=== PATIENT | male | born 1975 | race Caucasian/White ===

== ENCOUNTER 2017-11-03 13:47 | Emergency (ER) | payer BC ==
[~2017-11-03] VITALS: Ht 195.6 cm; Wt 158.8 kg
[~2017-11-03 13:47] MED LIST: ACETAMINOP160 MG/5 M PO; ALLOPURINOL 10100 M1 PO; ALLOPURINOL 30300 M1 PO; AUBAGIO14 MG PO; B 12 PO; BACTRIM DS TAB1 EACH PO; BETASERON0.3 MG/SY1 SC; CHLORTHALIDONE25 MG PO; CIPRO500 MG PO; COLCHICINE; COLCRYS PO; COUMADIN 4 MG TA4 M1 PO; COUMADIN 5 MG TA5 M1 PO; D3 PO; DIETHYLPROPION75 MG PO; FLOMAX0.4 MG PO; GILENYA0.5 MG PO; GLUCOPHAGE500 MG PO; HYCET 7.5 MG-3473 ML PO; HYDROCHLOROTHIA25 M2 PO; HYDROCODON-ACE1 EAC7 PO; HYDROCODONE-ACE10 ML PO; HYDROXYZINE HCL25 M1 PO; IBUPROFEN 200200 M1 PO; IBUPROFEN200 M2 PO; KEFLEX500 MG PO; LEVOTHYROXIN0.112 M1 PO; LORTAB 10 MG-3473 ML PO; METFORMIN HCL500 MG PO; MULTIVITAMINS; MULTIVITAMINS1 EAC7 PO; NEXIUM40 MG PO; NORCO 5-325 TA1 EACH PO; NORVASC5 MG PO; OXYCODONE HCL 55 MG PO; PERCOCET 5-3251 EACH PO; PHENAZOPYRIDIN200 M2 PO; PHENERGAN 25 MG25 M1 PO; PREDNISONE 10 M10 M1; PREDNISONE50 MG PO; PRILOSEC40 MG PO; PROTONIX40 MG PO; RITALIN5 MG; RIZATRIPTAN10 MG PO; ROBAXIN 750 MG750 M1 PO; SERTRALINE HCL50 MG PO; SOLU CORTE; SYNTHROID; SYNTHROID200 MCG PO; TAMSULOSIN HCL0.4 MG PO; TOPAMAX 25 MG T25 M1 PO; TRAZODONE HCL5 GM MC; VIACTIV SOFT C1 EACH PO; VITAMIN D1000 UNI1 PO; WARFARIN; WELCHOL; XARELTO15 MG PO; XARELTO20 MG PO; ZOLOFT25 MG PO; ZONEGRAN25 MG PO; ZPAK PO
[2017-11-03] MEDS ORDERED: NORCO 5-325 TA1 EACH PO (15:31)
[2017-11-03] MEDS ORDERED: FLEXERIL PO (15:31)
[2017-11-03 15:53] VITALS: BP 126/83
== END 2017-11-03 15:53 | disposition home or self-care (01) ==
LOC: M.ERS 13:47
DX: S93.401A Sprain of unspecified ligament of right ankle, initial encounter (principal); E11.9 Type 2 diabetes mellitus without complications; K85.90 Acute pancreatitis without necrosis or infection, unspecified; M54.31 Sciatica, right side; I10 Essential (primary) hypertension; E66.9 Obesity, unspecified; M10.9 Gout, unspecified; E03.9 Hypothyroidism, unspecified; F41.9 Anxiety disorder, unspecified; F32.9 Major depressive disorder, single episode, unspecified; F17.210 Nicotine dependence, cigarettes, uncomplicated; Z88.0 Allergy status to penicillin; Z88.6 Allergy status to analgesic agent; Z87.442 Personal history of urinary calculi

== ENCOUNTER 2018-05-08 14:01 | Emergency (ER) | payer OTHER ==
[~2018-05-08] VITALS: Ht 195.6 cm; Wt 176.9 kg
[~2018-05-08 14:01] MED LIST changes: +FLEXERIL PO
[2018-05-08 14:49] LABS: URINE BILIRUBIN NEGATIVE (Negative); URINE BLOOD TRACE (Negative); URINE CLARITY CLEAR; URINE COLOR YELLOW; URINE GLUCOSE-RANDOM NEGATIVE (Negative); URINE KETONES NEGATIVE (Negative); URINE LEUKOCYTES-REFLEX NEGATIVE (Negative); URINE NITRITE-REFLEX NEGATIVE (Negative); URINE PROTEIN 2+ (Negative); URINE SPECIFIC GRAVITY >= 1.030 (1.005-1.030); URINE UROBILINOGEN 0.2 E.U./dl (0.2-1.0)
[2018-05-08 14:51] LABS: ABSOLUTE BASOPHILS 0.1 thou/uL (0.0-0.2); ABSOLUTE EOSINOPHILS 0.2 thou/uL (0.0-0.7); ABSOLUTE MONOCYTES 1.4 thou/uL (0.0-1.2); ABSOLUTE NEUTROPHILS 10.7 thou/uL (1.6-8.1); BASOPHILS 0.5 %; EOSINOPHILS 1.1 %; HEMATOCRIT 49.4 % (42.0-52.0); HEMOGLOBIN 16.6 gm/dL (14.0-18.0); LYMPHOCYTES 14.2 %; MCH 27.6 pg (26.0-34.0); MCHC 33.5 g/dL (28.0-37.0); MCV 82.3 fL (80.0-100.0); MONOCYTES 9.8 %; MPV 7.6 fl. (7.2-11.1); NUCLEATED RBCS 0 /100WBC; PLATELET COUNT* 253 thou/uL (150-400); POLYS 74.4 %; RDW-CV 13.6 % (10.5-14.5); WBC 14.4 thou/uL (4.0-11.0)
[2018-05-08 15:06] LABS: BACTERIA-REFLEX None Seen /HPF (None Seen); CASTS None Seen /LPF (None Seen); CRYSTALS None Seen /LPF (None Seen); SQUAMOUS 0-3 Few /LPF (0-3); URINE RBC 0-2 Rare /HPF (0-2); URINE WBC-REFLEX 0-5 Rare /HPF (0-5)
[2018-05-08 15:14] LABS: CALCIUM 9.6 mg/dL (8.5-10.1); CREATININE 1.3 mg/dL (0.6-1.3); POTASSIUM 3.7 mmol/L (3.5-5.1)
[2018-05-08 15:19] LABS: ALBUMIN 3.4 g/dL (3.4-5.0); TOTAL BILIRUBIN 0.5 mg/dL (<0.1-1.0); TOTAL PROTEIN 7.5 g/dL (6.4-8.2)
--- NOTE | 2018-05-08 16:40 | EKG ---
[place] [address] ELECTROCARDIOGRAM REPORT Name: HOSSEIN DRISCOLL ROSALINA Room: [facility]#: [id number] Admission: 05/08/18 Attend Phys: Discharge: Date of : 71 Report #: [id number] THIS REPORT FOR: //name// [facility] ED Test Date: 2018-05-08 Test Time: 14:46:26 Pat Name: HOSSEIN DRISCOLL Department: Room: Gender: M Multimedia Developer: Keila ALEXANDER : 1975 Requested By: Raiza Montes Order Number: [id number] MD: Quan Lopez Measurements Intervals [place] Rate: 85 P: 15 KS: 202 QRS: -4 QRSD: 104 T: 19 QT: 367 QTc: 437 Interpretive Statements Sinus rhythm Borderline prolonged KS interval Left ventricular hypertrophy Baseline wander in lead(s) V1,V2,V3,V4,V5,V6 Compared to ECG 06/23/2017 11:14:55 no change Electronically Signed On 05-08-2018 16:39:44 CDT by Quan Lopez [email or web address] <ELECTRONICALLY SIGNED> By: Quan Lopez MD, [facility] 05/08/18 1639 [id number] 1446 Quan Lopez MD, [facility] /EPI
[2018-05-08 18:04] VITALS: BP 116/85
[2018-05-08] MEDS ORDERED: VENTOLIN HFA 1818 GM INH (18:05)
== END 2018-05-08 18:10 | disposition home or self-care (01) ==
LOC: M.ERS 14:01
PROVIDERS: Nurse Practitioner Family
DX: J20.9 Acute bronchitis, unspecified (principal); A08.4 Viral intestinal infection, unspecified; E11.9 Type 2 diabetes mellitus without complications; G35 Multiple sclerosis; I10 Essential (primary) hypertension; G47.33 Obstructive sleep apnea (adult) (pediatric); E66.9 Obesity, unspecified; M10.9 Gout, unspecified; E03.9 Hypothyroidism, unspecified; F32.9 Major depressive disorder, single episode, unspecified; F41.9 Anxiety disorder, unspecified; F17.210 Nicotine dependence, cigarettes, uncomplicated; Z86.718 Personal history of other venous thrombosis and embolism; Z87.442 Personal history of urinary calculi; Z90.49 Acquired absence of other specified parts of digestive tract; Z98.890 Other specified postprocedural states; Z88.5 Allergy status to narcotic agent; Z88.0 Allergy status to penicillin; Z68.42 Body mass index [BMI] 45.0-49.9, adult

== ENCOUNTER 2018-08-20 12:23 | Inpatient (IN) | payer OTHER ==
[~2018-08-20] VITALS: Ht 195.6 cm; Wt 163.3 kg
[~2018-08-20 12:23] MED LIST changes: +VENTOLIN HFA 1818 GM INH
[2018-08-20 12:29] VITALS: BP 141/97
[2018-08-20 13:00] LABS: BE 0.4 mmol/L (-2 to +3); HCO3 24.2 mmol/L (22.0-26.0); PO2 74.3 mmHg (75.0-100.0); pH 7.434 (7.340-7.450)
[2018-08-20 13:02] LABS: ABSOLUTE BASOPHILS 0.1 thou/uL (0.0-0.2); ABSOLUTE MONOCYTES 0.7 thou/uL (0.0-1.2); ABSOLUTE NEUTROPHILS 8.1 thou/uL (1.6-8.1); BASOPHILS 0.6 %; EOSINOPHILS 0.4 %; HEMATOCRIT 46.3 % (42.0-52.0); HEMOGLOBIN 15.6 gm/dL (14.0-18.0); LYMPHOCYTES 10.3 %; MCH 28.6 pg (26.0-34.0); MCHC 33.7 g/dL (28.0-37.0); MCV 84.7 fL (80.0-100.0); MONOCYTES 6.7 %; MPV 8.9 fl. (7.2-11.1); NUCLEATED RBCS 0 /100WBC; PLATELET COUNT* 137 thou/uL (150-400); RBC 5.47 mil/uL (4.50-6.00); WBC 9.9 thou/uL (4.0-11.0)
[2018-08-20 13:38] LABS: ANION GAP 7 mmol/L (7-16); BUN 8 mg/dL (7-18); CALCIUM 9.1 mg/dL (8.5-10.1); CHLORIDE 91 mmol/L (98-107); CO2 28 mmol/L (21-32); CREATININE 1.3 mg/dL (0.6-1.3); POTASSIUM 3.3 mmol/L (3.5-5.1); SODIUM 126 mmol/L (136-145)
[2018-08-20 13:43] LABS: GLUCOSE 589 mg/dL (70-99)
[2018-08-20 13:45] LABS: ALBUMIN 3.5 g/dL (3.4-5.0); ALKALINE PHOSPHATASE 106 U/L (46-116); SGOT 92 U/L (15-37); SGPT 98 U/L (30-65); TOTAL BILIRUBIN 0.9 mg/dL (<0.1-1.0); TOTAL PROTEIN 7.2 g/dL (6.4-8.2)
[2018-08-20] MEDS ORDERED: WELLBUTRIN XL300 MG PO (14:07)
[2018-08-20 14:31] VITALS: BP 123/84
[2018-08-20 14:45] VITALS: BP 135/96
[2018-08-20] MEDS ORDERED: ULTRAM 50MG TAB50 MG PO (16:54)
--- NOTE | 2018-08-20 19:44 | NUR ---
PT ARRIVED TO ROOM 208 AT APPROX 1440, ADMISSION HX AND ASSESMENT DONE CHARTED. PT A/O X4, UP AD MALATHI, BLOOD SUGARS MONITORED. PT GIVEN MEDS PRE MAR, REVIEWED HOME MEDS WITH PT. PT DENIES PAIN, VSS. REPORT GIVEN TO ONCOMING RNJUN.
[2018-08-20 20:10] VITALS: BP 118/72
[2018-08-20 22:08] LABS: GLYCOHEMOGLOBIN (HGB A1C) 12.7 % (4.8-5.6)
[2018-08-21] VITALS: BP 111/68
--- NOTE | 2018-08-21 01:15 | NUR ---
ASSUMED CARE OF PT AT 1900. PT IS ALERT AND ORIENTED. VSS. PERRLA. NO COMPLAINTS OF PAIN. STEADY GAIT. BLOOD SUGAR IS 170. PT IS IN SINUS RYTHM ON THE TELEMETRY. PT IS RESTING COMFORTABLY IN BED. RESPIRATIONS ARE EVEN AND NONLABORED. WILL CONTINUE TO MONITOR PT.
[2018-08-21 02:06] LABS: HEPATITIS B SURFACE AG Negative (Negative)
[2018-08-21 04:00] VITALS: BP 116/69
[2018-08-21 04:23] LABS: HEMATOCRIT 42.1 % (42.0-52.0); HEMOGLOBIN 14.3 gm/dL (14.0-18.0); MCH 28.5 pg (26.0-34.0); MCHC 33.9 g/dL (28.0-37.0); MPV 8.6 fl. (7.2-11.1); RBC 5.01 mil/uL (4.50-6.00); RDW-CV 13.1 % (10.5-14.5); WBC 6.2 thou/uL (4.0-11.0)
[2018-08-21 04:37] LABS: ALBUMIN 2.9 g/dL (3.4-5.0); CALCIUM 8.4 mg/dL (8.5-10.1); CREATININE 1.1 mg/dL (0.6-1.3); MAGNESIUM 1.7 mg/dL (1.8-2.4); POTASSIUM 3.2 mmol/L (3.5-5.1); TOTAL BILIRUBIN 0.8 mg/dL (<0.1-1.0); TOTAL PROTEIN 5.7 g/dL (6.4-8.2)
--- NOTE | 2018-08-21 07:30 | NUR ---
ASSUMED CARE OF PT ASSESSED AND DOCUMENTED. PT IS ON CARDIAC MONITER TRACING SR HR 73. PT IS A&O WITH NO C/O PAIN. VSS WNL. PT IS AFEBRILE AND ON ROOM AIR. PT IS NPO FOR ABD ULTRA SOUND. BED IS IN LOW POSITION CALL LIGHT IS IN REACH. WM.
[2018-08-21 08:00] VITALS: BP 121/77
[2018-08-21 10:15] LABS: URINE BILIRUBIN NEGATIVE (Negative); URINE BLOOD TRACE (Negative); URINE CLARITY CLEAR; URINE COLOR YELLOW; URINE GLUCOSE-RANDOM 3+ (Negative); URINE KETONES TRACE (Negative); URINE LEUKOCYTES-REFLEX NEGATIVE (Negative); URINE NITRITE-REFLEX NEGATIVE (Negative); URINE PROTEIN TRACE (Negative); URINE SPECIFIC GRAVITY >= 1.030 (1.005-1.030); URINE UROBILINOGEN 0.2 E.U./dl (0.2-1.0)
--- NOTE | 2018-08-21 11:53 | NUR ---
Pt is A&O. Resides at home with his girlfriend. Independent and active, continues to work outside of the home. Pt wears a cpap at night, no other DME. Hx of HH, does not recall the name of the agency. No hx of skilled. Pt's goal is to return home at dc. Pt states that mentioned possible dc to home tomorrow. Following.
--- NOTE | 2018-08-21 15:47 | NUR ---
PT TRANSFERRED TO [facility]. REPORT CALLED.
--- NOTE | 2018-08-21 16:07 | NUR ---
PT TRANSFERRED TO UNIT. PT IS ALERT AND ORIENTED. PT IS ON ROOM AIR, CLEAR LUNGS. PULSES 2+ IN ALL EXTREMITIES. SKIN IS DRY AND INTACT. PT IS UP AD MALATHI AND HAS A STEADY GAIT. CALL LIGHT IN REACH. PT NOTIFIED TO CALL IF NEEDING ASSISTANCE. WILL CONTINUE TO MONITOR.
--- NOTE | 2018-08-21 17:15 | NUR ---
PT IS ALERT AND ORIENTED. PT IS UP AD MALATHI. PT HAS BEEN UP TO CHAIR FOR DINNER. PT RECEIVED INSULIN WITH BLOOD SUAGR OF 205. CALL LIGHT IN REACH. PT NOTIFIED TO CALL US IF NEEDING ASSISTANCE. WILL CONTINUE TO MONITOR. PT GIVEN DOSE OF POTASSIUM DUE TO LEVEL BEING 3.4.
--- NOTE | 2018-08-21 18:47 | NUR ---
CHARTING COMPLETED BY KATHIA Carlton RN. REVIEWED AND AGREE WITH ALL CHARTING AND ASSESSMENTS.
[2018-08-21 21:02] VITALS: BP 116/76
--- NOTE | 2018-08-22 05:00 | NUR ---
ALERT AND ORIENTED X4. RESTING QUIETLY IN BED ON HOURLY ROUNDS. NO C/O N/V OR PAIN. UP AD MALATHI WITHOUT DIFFICULTY. LAST BLOOD SUGAR AT BEDTIME 106. CALL LIGHT WITHIN REACH. PROGRESSING TOWARD DISCHARGE GOAL.
[2018-08-22 05:03] LABS: HEMATOCRIT 42.4 % (42.0-52.0); HEMOGLOBIN 14.1 gm/dL (14.0-18.0); MCH 28.4 pg (26.0-34.0); MCHC 33.3 g/dL (28.0-37.0); MCV 85.2 fL (80.0-100.0); MPV 8.9 fl. (7.2-11.1); RBC 4.98 mil/uL (4.50-6.00); RDW-CV 13.3 % (10.5-14.5); WBC 6.4 thou/uL (4.0-11.0)
[2018-08-22 05:30] LABS: ALBUMIN 2.8 g/dL (3.4-5.0); CALCIUM 8.8 mg/dL (8.5-10.1); MAGNESIUM 1.8 mg/dL (1.8-2.4); POTASSIUM 3.5 mmol/L (3.5-5.1); TOTAL BILIRUBIN 0.7 mg/dL (<0.1-1.0); TOTAL PROTEIN 5.5 g/dL (6.4-8.2)
[2018-08-22 08:23] VITALS: BP 135/79
[2018-08-22] MEDS ORDERED: JANUVIA100 MG PO (08:30)
[2018-08-22 08:54] VITALS: BP 135/79
--- NOTE | 2018-08-22 09:16 | NUR ---
PT GIVEN DISCHARGE INFORMATION AT THIS TIME. PRESCRIPTIONS GIVEN. PT DENIED ANY QUESTIONS OR CONCERNS AT THIS TIME. PT LEFT WITH GIRL FRIEND TO HOME CARE.
[2018-08-22 09:56] VITALS: BP 135/79
== END 2018-08-22 09:57 | disposition home or self-care (01) | DRG 637 ==
LOC: M.ERS 12:23 → M.2W 14:10 → M.TBA-ER 14:10 → M.2W 14:45 → M.ORTHSURG 08-21 15:41
PROVIDERS: Nurse Practitioner Family; ADMIT Internal Medicine
DX: E11.65 Type 2 diabetes mellitus with hyperglycemia (principal); E11.00 Type 2 diabetes mellitus with hyperosmolarity without nonketotic hyperglycemic-hyperosmolar coma (NKHHC); Z68.41 Body mass index [BMI] 40.0-44.9, adult; Z86.718 Personal history of other venous thrombosis and embolism; Z86.711 Personal history of pulmonary embolism; Z87.442 Personal history of urinary calculi; I10 Essential (primary) hypertension; G47.33 Obstructive sleep apnea (adult) (pediatric); E66.9 Obesity, unspecified; M10.9 Gout, unspecified; E03.9 Hypothyroidism, unspecified; F32.9 Major depressive disorder, single episode, unspecified; F41.9 Anxiety disorder, unspecified; Z90.49 Acquired absence of other specified parts of digestive tract; Z88.0 Allergy status to penicillin; G35 Multiple sclerosis; Z28.21 Immunization not carried out because of patient refusal

== ENCOUNTER → 2019-01-11 | Outpatient (CLI) | payer OTHER ==
[~2019-01-11] MED LIST changes: +JANUVIA100 MG PO; +ULTRAM 50MG TAB50 MG PO; +WELLBUTRIN XL300 MG PO
== END ==
LOC: M.ULTRA 15:00
DX: M79.89 Other specified soft tissue disorders (principal); M25.872 Other specified joint disorders, left ankle and foot

== ENCOUNTER → 2019-01-25 | Outpatient (CLI) | payer OTHER | LOC: M.MRI 13:19 | DX: S93.412A Sprain of calcaneofibular ligament of left ankle, initial encounter (principal); M25.472 Effusion, left ankle; M19.071 Primary osteoarthritis, right ankle and foot; M62.562 Muscle wasting and atrophy, not elsewhere classified, left lower leg; M89.8X7 Other specified disorders of bone, ankle and foot; M76.62 Achilles tendinitis, left leg; X58.XXXA Exposure to other specified factors, initial encounter; Y93.89 Activity, other specified; Y92.89 Other specified places as the place of occurrence of the external cause; Y99.8 Other external cause status ==

== ENCOUNTER → 2020-04-05 | Outpatient (CLI) | payer OTHER | LOC: M.ULTRA 16:43 | DX: I82.432 Acute embolism and thrombosis of left popliteal vein (principal); R22.42 Localized swelling, mass and lump, left lower limb; Z86.718 Personal history of other venous thrombosis and embolism ==

== ENCOUNTER → 2020-09-12 | Outpatient (CLI) | payer OTHER | LOC: M.CT 12:00 | PROVIDERS: ATTEND Registered Nurse Diabetes Educator | DX: S06.0X0D Concussion without loss of consciousness, subsequent encounter (principal); G43.009 Migraine without aura, not intractable, without status migrainosus; X58.XXXD Exposure to other specified factors, subsequent encounter ==

== ENCOUNTER 2021-04-05 23:02 | Emergency (ER) | payer OTHER ==
[~2021-04-05] VITALS: Ht 195.6 cm; Wt 156.5 kg
[2021-04-05] MEDS ORDERED: ELIQUIS2.5 MG PO (23:24)
[2021-04-05] MEDS ORDERED: PROZAC20 M1 PO (23:25)
[2021-04-05] MEDS ORDERED: PROPRANOLOL 8080 MG PO (23:26)
[2021-04-05] MEDS ORDERED: LIPITOR10 MG PO (23:29)
[2021-04-05] MEDS ORDERED: LISINOPRIL10 MG PO (23:29)
[2021-04-05] MEDS ORDERED: FLOMAX0.4 MG PO (23:29)
[2021-04-06] VITALS: BP 155/106
== END 2021-04-06 00:01 | disposition home or self-care (01) ==
LOC: M.ERS 23:02
DX: S61.211A Laceration without foreign body of left index finger without damage to nail, initial encounter (principal); E11.9 Type 2 diabetes mellitus without complications; I10 Essential (primary) hypertension; M10.9 Gout, unspecified; E03.9 Hypothyroidism, unspecified; F17.210 Nicotine dependence, cigarettes, uncomplicated; Z88.0 Allergy status to penicillin; Z88.1 Allergy status to other antibiotic agents; Z79.899 Other long term (current) drug therapy; Z90.49 Acquired absence of other specified parts of digestive tract; W26.0XXA Contact with knife, initial encounter; Y93.89 Activity, other specified; Y92.89 Other specified places as the place of occurrence of the external cause; Y99.9 Unspecified external cause status

== ENCOUNTER 2021-04-24 17:10 | Emergency (ER) | payer OTHER ==
[~2021-04-24] VITALS: Ht 195.6 cm; Wt 160.1 kg
[~2021-04-24 17:10] MED LIST changes: +ELIQUIS2.5 MG PO; +LIPITOR10 MG PO; +LISINOPRIL10 MG PO; +PROPRANOLOL 8080 MG PO; +PROZAC20 M1 PO
[2021-04-24] MEDS ORDERED: OMEPRAZOLE 20 M20 M1 PO (17:23)
[2021-04-24 18:09] LABS: ABSOLUTE EOSINOPHILS 0.2 thou/uL (0.0-0.7); ABSOLUTE LYMPHOCYTES 1.5 thou/uL (0.8-5.3); ABSOLUTE MONOCYTES 0.9 thou/uL (0.0-1.2); ABSOLUTE NEUTROPHILS 4.4 thou/uL (1.6-8.1); BASOPHILS 0.7 %; EOSINOPHILS 2.9 %; HEMATOCRIT 44.2 % (42.0-52.0); HEMOGLOBIN 15.3 gm/dL (14.0-18.0); LYMPHOCYTES 21.4 %; MCH 28.9 pg (26.0-34.0); MCHC 34.6 g/dL (28.0-37.0); MCV 83.6 fL (80.0-100.0); MONOCYTES 13.1 %; NUCLEATED RBCS 0 /100WBC; PLATELET COUNT* 151 thou/uL (150-400); POLYS 61.9 %; RBC 5.29 mil/uL (4.50-6.00); RDW-CV 13.1 % (10.5-14.5); WBC 7.2 thou/uL (4.0-11.0)
[2021-04-24 18:26] LABS: CALCIUM 9.1 mg/dL (8.5-10.1); CREATININE 1.2 mg/dL (0.6-1.3); POTASSIUM 3.8 mmol/L (3.5-5.1)
[2021-04-24 18:32] LABS: URINE BILIRUBIN NEGATIVE (Negative); URINE BLOOD TRACE (Negative); URINE CLARITY CLEAR; URINE COLOR YELLOW; URINE GLUCOSE-RANDOM NEGATIVE (Negative); URINE KETONES NEGATIVE (Negative); URINE LEUKOCYTES-REFLEX NEGATIVE (Negative); URINE NITRITE-REFLEX NEGATIVE (Negative); URINE PROTEIN 2+ (Negative); URINE SPECIFIC GRAVITY >= 1.030 (1.005-1.030); URINE UROBILINOGEN 0.2 E.U./dl (0.2-1.0)
[2021-04-24 18:40] LABS: BACTERIA-REFLEX None Seen /HPF (None Seen); HYALINE CASTS 0-3 Few /LPF (None Seen); MUCUS None Seen strn/LPF (None Seen); SQUAMOUS 0-3 Few /LPF (0-3); URINE RBC 0-2 Rare /HPF (0-2); URINE WBC-REFLEX 0-5 Rare /HPF (0-5)
[2021-04-24 18:41] LABS: CRYSTALS None Seen /LPF (None Seen)
[2021-04-24] MEDS ORDERED: CLEOCIN HCL300 MG PO (18:42)
[2021-04-24 18:57] VITALS: BP 172/90
== END 2021-04-24 18:57 | disposition home or self-care (01) ==
LOC: M.ERS 17:10
PROVIDERS: Nurse Practitioner Psychiatric/Mental Health
DX: I10 Essential (primary) hypertension (principal); E11.9 Type 2 diabetes mellitus without complications; E03.9 Hypothyroidism, unspecified; G47.33 Obstructive sleep apnea (adult) (pediatric); E66.9 Obesity, unspecified; F17.210 Nicotine dependence, cigarettes, uncomplicated; Z68.41 Body mass index [BMI] 40.0-44.9, adult; Z88.0 Allergy status to penicillin; Z88.8 Allergy status to other drugs, medicaments and biological substances; Z86.718 Personal history of other venous thrombosis and embolism; Z86.711 Personal history of pulmonary embolism; Z87.442 Personal history of urinary calculi; Z90.49 Acquired absence of other specified parts of digestive tract; R59.1 Generalized enlarged lymph nodes

== ENCOUNTER 2021-05-29 14:44 | Emergency (ER) | payer OTHER ==
[~2021-05-29] VITALS: Ht 195.6 cm; Wt 160.1 kg
[~2021-05-29 14:44] MED LIST changes: +CLEOCIN HCL300 MG PO; +OMEPRAZOLE 20 M20 M1 PO
[2021-05-29] MEDS ORDERED: PROMETH-CODEIN 65 ML PO (16:40)
[2021-05-29] MEDS ORDERED: DEXAMETHASONE 44 M1 PO (16:40)
[2021-05-29] MEDS ORDERED: VENTOLIN HFA 1818 GM INH (16:40)
[2021-05-29 17:22] VITALS: BP 169/120
== END 2021-05-29 17:23 | disposition home or self-care (01) ==
LOC: M.ERS 14:44
DX: J40 Bronchitis, not specified as acute or chronic (principal); E11.9 Type 2 diabetes mellitus without complications; I10 Essential (primary) hypertension; G47.33 Obstructive sleep apnea (adult) (pediatric); E03.9 Hypothyroidism, unspecified; E66.9 Obesity, unspecified; F17.210 Nicotine dependence, cigarettes, uncomplicated; Z88.0 Allergy status to penicillin; Z88.8 Allergy status to other drugs, medicaments and biological substances; Z86.718 Personal history of other venous thrombosis and embolism; Z86.711 Personal history of pulmonary embolism; Z87.442 Personal history of urinary calculi; Z68.41 Body mass index [BMI] 40.0-44.9, adult; Z90.49 Acquired absence of other specified parts of digestive tract

== ENCOUNTER 2021-07-25 10:27 | Emergency (ER) | payer OTHER ==
[~2021-07-25] VITALS: Ht 195.6 cm; Wt 160.1 kg
[~2021-07-25 10:27] MED LIST changes: +DEXAMETHASONE 44 M1 PO; +PROMETH-CODEIN 65 ML PO
[2021-07-25 11:18] LABS: ABSOLUTE BASOPHILS 0.1 thou/uL (0.0-0.2); ABSOLUTE EOSINOPHILS 0.2 thou/uL (0.0-0.7); ABSOLUTE LYMPHOCYTES 1.7 thou/uL (0.8-5.3); ABSOLUTE MONOCYTES 0.8 thou/uL (0.0-1.2); ABSOLUTE NEUTROPHILS 3.6 thou/uL (1.6-8.1); EOSINOPHILS 3.1 %; HEMATOCRIT 43.1 % (42.0-52.0); HEMOGLOBIN 14.5 gm/dL (14.0-18.0); LYMPHOCYTES 26.2 %; MCH 28.2 pg (26.0-34.0); MCHC 33.7 g/dL (28.0-37.0); MCV 83.6 fL (80.0-100.0); MONOCYTES 12.5 %; MPV 8.2 fl. (7.2-11.1); NUCLEATED RBCS 0 /100WBC; PLATELET COUNT* 134 thou/uL (150-400); POLYS 57.2 %; RBC 5.16 mil/uL (4.50-6.00); RDW-CV 14.2 % (10.5-14.5); WBC 6.4 thou/uL (4.0-11.0)
[2021-07-25 11:26] LABS: CALCIUM 8.7 mg/dL (8.5-10.1); CREATININE 1.4 mg/dL (0.6-1.3); POTASSIUM 4.9 mmol/L (3.5-5.1)
[2021-07-25 11:31] LABS: ALBUMIN 3.3 g/dL (3.4-5.0); TOTAL BILIRUBIN 0.5 mg/dL (<0.1-1.0); TOTAL PROTEIN 6.7 g/dL (6.4-8.2)
[2021-07-25 11:49] LABS: URINE BILIRUBIN NEGATIVE (Negative); URINE BLOOD NEGATIVE (Negative); URINE CLARITY CLEAR; URINE COLOR YELLOW; URINE GLUCOSE-RANDOM NEGATIVE (Negative); URINE KETONES NEGATIVE (Negative); URINE LEUKOCYTES NEGATIVE (Negative); URINE NITRITE NEGATIVE (Negative); URINE PROTEIN NEGATIVE (Negative); URINE SPECIFIC GRAVITY 1.015 (1.005-1.030); URINE UROBILINOGEN 0.2 E.U./dl (0.2-1.0)
[2021-07-25 13:46] VITALS: BP 156/108
== END 2021-07-25 13:47 | disposition home or self-care (01) ==
LOC: M.ERS 10:27
PROVIDERS: Physician Assistant
DX: N20.0 Calculus of kidney (principal); E11.9 Type 2 diabetes mellitus without complications; I10 Essential (primary) hypertension; E66.9 Obesity, unspecified; E03.9 Hypothyroidism, unspecified; F32.9 Major depressive disorder, single episode, unspecified; F41.9 Anxiety disorder, unspecified; F17.210 Nicotine dependence, cigarettes, uncomplicated; Z87.442 Personal history of urinary calculi; Z86.718 Personal history of other venous thrombosis and embolism; Z68.41 Body mass index [BMI] 40.0-44.9, adult; Z90.49 Acquired absence of other specified parts of digestive tract; Z98.890 Other specified postprocedural states; Z79.899 Other long term (current) drug therapy; Z88.8 Allergy status to other drugs, medicaments and biological substances; Z88.0 Allergy status to penicillin

== ENCOUNTER 2021-09-20 11:21 | Inpatient (IN) | payer OTHER ==
[~2021-09-20] VITALS: Ht 195.6 cm; Wt 161.0 kg
--- NOTE | ~2021-09-20 | PROC ---
[address] [address] PROCEDURE REPORT Name: HOSSEIN DRISCOLL Room: [address] IN M.R.#: [id number] Admission: 09/20/21 Attend Phys: Diya Machado MD Discharge: 09/23/21 Date of : 71 Report #: [id number] THIS REPORT FOR: cc: Bess Davidson Tammy RNP [facility],Medical Records Staff ~ For GI report, please see the Provation report in Perceptive 7 content. By: 1217Medical Records Staff DANICA /HAVEN
[~2021-09-20 11:21] MED LIST changes: -LISINOPRIL10 MG PO; +LISINOPRIL20 MG PO
[2021-09-20 11:25] VITALS: BP 170/117
[2021-09-20 11:55] LABS: ABSOLUTE BASOPHILS 0.1 thou/uL (0.0-0.2); ABSOLUTE EOSINOPHILS 0.2 thou/uL (0.0-0.7); ABSOLUTE LYMPHOCYTES 1.4 thou/uL (0.8-5.3); ABSOLUTE MONOCYTES 1.2 thou/uL (0.0-1.2); ABSOLUTE NEUTROPHILS 6.1 thou/uL (1.6-8.1); BASOPHILS 0.7 %; EOSINOPHILS 2.6 %; HEMATOCRIT 49.3 % (42.0-52.0); HEMOGLOBIN 16.6 gm/dL (14.0-18.0); LYMPHOCYTES 15.9 %; MCH 28.4 pg (26.0-34.0); MCHC 33.6 g/dL (28.0-37.0); MCV 84.4 fL (80.0-100.0); MONOCYTES 12.8 %; MPV 8.2 fl. (7.2-11.1); NUCLEATED RBCS 0 /100WBC; PLATELET COUNT* 148 thou/uL (150-400); RBC 5.84 mil/uL (4.50-6.00); RDW-CV 13.1 % (10.5-14.5)
[2021-09-20 12:12] LABS: CALCIUM 8.7 mg/dL (8.5-10.1); CREATININE 1.4 mg/dL (0.6-1.3); POTASSIUM 3.9 mmol/L (3.5-5.1)
[2021-09-20 12:16] LABS: ALBUMIN 3.2 g/dL (3.4-5.0); TOTAL BILIRUBIN 0.6 mg/dL (<0.1-1.0); TOTAL PROTEIN 6.6 g/dL (6.4-8.2)
[2021-09-20 17:23] VITALS: BP 153/102
[2021-09-20 17:29] VITALS: BP 172/104
[2021-09-20 20:00] VITALS: BP 145/79
[2021-09-21 03:17] VITALS: BP 143/95
[2021-09-21 05:07] LABS: GLYCOHEMOGLOBIN (HGB A1C) 8.7 % (4.8-5.6)
[2021-09-21 05:42] LABS: HEMATOCRIT 46.1 % (42.0-52.0); HEMOGLOBIN 15.2 gm/dL (14.0-18.0); MCH 28.4 pg (26.0-34.0); MCHC 33.1 g/dL (28.0-37.0); MCV 85.8 fL (80.0-100.0); RBC 5.37 mil/uL (4.50-6.00); RDW-CV 13.3 % (10.5-14.5); WBC 7.3 thou/uL (4.0-11.0)
[2021-09-21 05:51] LABS: ALBUMIN 2.8 g/dL (3.4-5.0); CALCIUM 8.4 mg/dL (8.5-10.1); CREATININE 1.3 mg/dL (0.6-1.3); TOTAL BILIRUBIN 0.6 mg/dL (<0.1-1.0); TOTAL PROTEIN 5.7 g/dL (6.4-8.2)
[2021-09-21 06:25] VITALS: BP 142/78
[2021-09-21 08:30] VITALS: BP 135/105
--- NOTE | 2021-09-21 10:09 | EKG ---
[place] [address] ELECTROCARDIOGRAM REPORT Name: HOSSEIN DRISCOLL Room: [place] [address] ADM IN .R.#: [id number] Admission: 09/20/21 Attend Phys: Diya Machado, Discharge: Date of : 71 Date of Service: 09/20/21 1126 Report #: [id number] THIS REPORT FOR: //name// [facility] ED Test Date: 2021-09-20 Test Time: 11:26:15 Pat Name: HOSSEIN DRISCOLL Department: Room: [facility] Gender: M Tennis Centre Manager: : 1975 Requested By: Randy Rainey Order Number: [id number] MD: Quan Lopez Measurements Intervals [place] Rate: 69 P: 12 DE: 215 QRS: -37 QRSD: 104 T: 59 QT: 383 QTc: 411 Interpretive Statements Sinus rhythm Prolonged DE interval Consider left atrial enlargement Left ventricular hypertrophy Baseline wander in lead(s) V3,V4,V5 Compared to ECG 05/08/2018 14:46:26 No significant changes Electronically Signed On 09-21-2021 10:09:40 DECONTAMINATION TECHNICIAN by Quan Lopez [email or web address] <ELECTRONICALLY SIGNED> By: Quan Lopez MD, FACC 09/21/21 1009 1126 1126 Quan Lopez MD, FACC /EPI
[2021-09-21 12:00] VITALS: BP 146/111
--- NOTE | 2021-09-21 13:01 | 2DMMODE ---
[place] [address] 2 D/M-MODE ECHOCARDIOGRAM Name: HOSSEIN DRISCOLL Room: [facility] ADM IN .Amber.#: [id number] Admission: 09/20/21 Attend Phys: Diya Machado, Discharge: Date of : 71 Date of Service: 09/21/21 1300 Report #: [id number] THIS REPORT FOR: cc: Bess Davidson Tammy RNP Blick, David R. MD [facility] ~ APPROVED REPORT Study performed: 09/21/2021 10:46:02 EXAM: Comprehensive 2D, Doppler, and color-flow Echocardiogram Patient Location: In-Patient Room #: [facility] Status: routine BSA: 2.85 HR: 74 bpm BP: 142/78 mmHg Rhythm: NSR Other Information Study Quality: Good Indications Chest Pain 2D Dimensions IVSd: 13.23 (7-11mm) LVOT Diam: 21.54 (18-24mm) LVDd: 44.00 mm PWd: 12.29 (7-11mm) Ascending Ao: 38.32 (22-36mm) LVDs: 27.09 (25-40mm) Aortic Root: 39.07 mm Volumes Left Atrial Volume (Systole) LA ESV Index: 22.60 mL/m2 Aortic Valve AoV Peak Emanuel.: 1.03 m/s AO Peak Gr.: 4.27 mmHg LVOT Max P.22 mmHg AO Mean Gr.: 2.64 mmHg LVOT Mean P.16 mmHg LVOT Max V: 1.03 m/s AO V2 VTI: 17.61 cm LVOT Mean V: 0.67 m/s MISSY (VTI): 4.08 cm2 LVOT V1 VTI: 19.70 [place] [address] 2 D/M-MODE ECHOCARDIOGRAM Name: HOSSEIN DRISCOLL Room: [address] IN .R.#: [id number] Admission: 09/20/21 Attend Phys: Diya Machado, Discharge: Date of : 71 Date of Service: 09/21/21 1300 Report #: [id number] Mitral Valve E/A Ratio: 0.60 MV Decel. Time: 264.05 ms MV E Max Emanuel.: 0.47 m/s MV PHT: 76.58 ms MVA (PHT): 2.87 cm2 TDI E/Lateral E': 3.92 E/Medial E': 3.92 Medial E' Emanuel.: 0.12 m/s Lateral E' Emanuel.: 0.12 m/s Pulmonary Valve PV Peak Emanuel.: 0.92 m/s PV Peak Gr.: 3.41 mmHg Left Ventricle The left ventricle is normal size. There is normal LV segmental wall motion. Mild concentric left ventricular hypertrophy. Left ventricular systolic function is normal. The left ventricular ejection fraction is within the normal range. LVEF is 55-60%. Grade I - abnormal relaxation pattern. Right Ventricle The right ventricle is normal size. The right ventricular systolic function is normal. Atria The left atrium size is normal. The right atrium size is normal. Aortic Valve The Aortic valve is sclerotic. No aortic regurgitation is present. There is no aortic valvular stenosis. Mitral Valve The mitral valve is normal in structure. There is no mitral valve regurgitation noted. No evidence of mitral valve stenosis. Tricuspid Valve The tricuspid valve is normal in structure. Unable to assess PA pressure. Trace tricuspid regurgitation. Pulmonic Valve The pulmonary valve is normal in structure. There is no pulmonic [place] [address] 2 D/M-MODE ECHOCARDIOGRAM Name: HOSSEIN DRISCOLL Room: [address] IN [facility]#: [id number] Admission: 09/20/21 Attend Phys: Diya Machado, Discharge: Date of : 71 Date of Service: 09/21/21 1300 Report #: [id number] Great Vessels Aortic root is mildly dilated. IVC is not well visualized. Pericardium There is no pericardial effusion. <Conclusion> Mild concentric left ventricular hypertrophy. LVEF is 55-60%. The Aortic valve is sclerotic. <ELECTRONICALLY SIGNED> By: Quan Lopez MD, FACC 09/21/21 1300 1300 1300 Quan Lopez MD, FACC /INF
[2021-09-21 16:00] VITALS: BP 152/115
[2021-09-21 20:00] VITALS: BP 159/90
[2021-09-22 01:09] VITALS: BP 138/104
[2021-09-22 06:21] VITALS: BP 158/94
[2021-09-22 08:00] VITALS: BP 148/98
[2021-09-22 08:44] LABS: HEMATOCRIT 49.4 % (42.0-52.0); HEMOGLOBIN 16.5 gm/dL (14.0-18.0); MCH 28.3 pg (26.0-34.0); MCHC 33.4 g/dL (28.0-37.0); MCV 84.6 fL (80.0-100.0); MPV 8.2 fl. (7.2-11.1); RBC 5.85 mil/uL (4.50-6.00); WBC 7.7 thou/uL (4.0-11.0)
[2021-09-22 08:54] LABS: CREATININE 1.2 mg/dL (0.6-1.3); MAGNESIUM 2.1 mg/dL (1.8-2.4); POTASSIUM 3.6 mmol/L (3.5-5.1)
[2021-09-22 08:59] LABS: INR 1.1; PROTIME 11.3 Seconds (9.20-11.50)
[2021-09-22 13:00] VITALS: BP 141/98
[2021-09-22 16:00] VITALS: BP 137/92
[2021-09-22 20:00] VITALS: BP 127/83
[2021-09-23 01:41] VITALS: BP 114/62
[2021-09-23 06:23] VITALS: BP 142/62
[2021-09-23 07:40] VITALS: BP 138/89
[2021-09-23] MEDS ORDERED: ELIQUIS5 MG PO (10:48)
[2021-09-23] MEDS ORDERED: TRIAMTERENE-HC1 EAC1 PO (10:51)
[2021-09-23] MEDS ORDERED: PROTONIX40 M2 PO (11:06)
[2021-09-23] MEDS ORDERED: REGLAN 10 MG TA10 MG PO (11:39)
[2021-09-23 12:04] VITALS: BP 138/89
== END 2021-09-23 12:45 | disposition home or self-care (01) | DRG 304 ==
LOC: M.ERS 11:21 → M.2W 14:28 → M.TBA-ER 14:28 → M.2W 17:20
PROVIDERS: Internal Medicine Gastroenterology; Physician Assistant; ADMIT Internal Medicine; ATTEND Internal Medicine
PROC: 0DJ08ZZ Inspection of Upper Intestinal Tract, Via Natural or Artificial Opening Endoscopic (ICD-10-PCS; principal; 2021-09-22)
PROC: 5A09357 Assistance with Respiratory Ventilation, Less than 24 Consecutive Hours, Continuous Positive Airway Pressure (ICD-10-PCS; principal; 2021-09-22)
DX: I16.0 Hypertensive urgency (principal); N17.0 Acute kidney failure with tubular necrosis; Z68.41 Body mass index [BMI] 40.0-44.9, adult; R07.89 Other chest pain; Z20.822 Contact with and (suspected) exposure to COVID-19; I10 Essential (primary) hypertension; G47.33 Obstructive sleep apnea (adult) (pediatric); F32.9 Major depressive disorder, single episode, unspecified; E03.9 Hypothyroidism, unspecified; F41.9 Anxiety disorder, unspecified; M10.9 Gout, unspecified; G43.909 Migraine, unspecified, not intractable, without status migrainosus; E11.65 Type 2 diabetes mellitus with hyperglycemia; E66.01 Morbid (severe) obesity due to excess calories; I51.7 Cardiomegaly; K44.9 Diaphragmatic hernia without obstruction or gangrene; Z79.899 Other long term (current) drug therapy; Z98.0 Intestinal bypass and anastomosis status; Z86.718 Personal history of other venous thrombosis and embolism; Z86.711 Personal history of pulmonary embolism; Z87.442 Personal history of urinary calculi; Z90.49 Acquired absence of other specified parts of digestive tract; Z88.0 Allergy status to penicillin; Z88.8 Allergy status to other drugs, medicaments and biological substances